=== PATIENT | female | born 1960 | race Caucasian/White ===

== ENCOUNTER 2019-12-27 12:12 | Emergency (ER) | payer BC, OTHER ==
--- NOTE | 2019-12-27 13:50 | ER Document Report ---
ED Medical Screen (RME) - General Chief Complaint: Near Syncope Stated Complaint: POSSIBLE SYNCOPE/NAUSEA Time Seen by Provider: 12/27/19 13:44 Mode of Arrival: Wheelchair Information source: Patient Notes: 59-year-old female presented to ED for dizziness nausea and vomiting when she woke up this morning around 8:30 AM. She states she felt like she was going to pass out but she did not. She states she she got back into bed and stayed there until her daughter came home. States when daughter came home she called 911 and brought her to the emergency room. States EMS gave her some nausea medicine. She states she is no longer nauseated but she is still dizzy. She states she has never felt like this before. I have greeted and performed a rapid initial assessment of this patient. A comprehensive ED assessment and evaluation of the patient, analysis of test results and completion of medical decision making process will be conducted by an additional ED providers. TRAVEL OUTSIDE OF THE [place] IN LAST 30 DAYS: No - Related Data Allergies/Adverse Reactions: No Known Allergies Allergy (Verified 03/10/16 14:35) Past Medical History - Past Medical History Cardiac Medical History: Reports: Hx Hypertension Past Surgical History: Reports: Hx Tubal Ligation - Immunizations Hx Diphtheria, Pertussis, Tetanus Vaccination: Yes Physical Exam - Vital signs Vitals: Temp Pulse Resp BP Pulse Ox 97.4 F 58 L 16 153/79 H 97 12/27/19 12:44 12/27/19 12:44 12/27/19 12:44 12/27/19 12:44 12/27/19 12:44 Course - Vital Signs Vital signs: Temp Pulse Resp BP Pulse Ox 97.4 F 58 L 16 153/79 H 97 12/27/19 12:44 12/27/19 12:44 12/27/19 12:44 12/27/19 12:44 12/27/19 12:44
[2019-12-27 14:59] LABS: ABSOLUTE LYMPHOCYTES (AUTO) 2.1 10^3/uL (0.5-4.7); ABSOLUTE MONOCYTES (AUTO) 0.2 10^3/uL (0.1-1.4); ABSOLUTE NEUT (AUTO) 1.5 10^3/uL (1.7-8.2); BASOPHILS % (AUTO) 1.3 % (0-2); EOSINOPHILS % (AUTO) 0.7 % (0-6); HEMATOCRIT 42.9 % (36.0-47.0); HEMOGLOBIN 14.5 g/dL (12.0-15.5); LYMPHOCYTES % (AUTO) 54.9 % (13-45); MEAN CORPUSCULAR HEMOGLOBIN 31.3 pg (27.0-33.4); MEAN CORPUSCULAR HGB CONC 33.7 g/dL (32.0-36.0); MEAN CORPUSCULAR VOLUME 93 fl (80-97); MONOCYTES % (AUTO) 4.2 % (3-13); PLATELET COUNT 232 10^3/uL (150-450); RED BLOOD COUNT 4.62 10^6/uL (3.72-5.28); RED CELL DISTRIBUTION WIDTH 13.5 % (11.5-14.0); SEGMENTED NEUTROPHILS % (AUTO) 38.9 % (42-78); TOTAL CELLS COUNTED % (AUTO) 100 %; WHITE BLOOD COUNT 3.8 10^3/uL (4.0-10.5)
[2019-12-27 15:01] LABS: APPEARANCE,URINE CLEAR; BILIRUBIN,URINE NEGATIVE (NEGATIVE); COLOR,URINE YELLOW; GLUCOSE, URINE NEGATIVE (NEGATIVE); KETONES,URINE NEGATIVE (NEGATIVE); PROTEIN,URINE NEGATIVE (NEGATIVE); URINE SPECIFIC GRAVITY 1.009; UROBILINOGEN,URINE NEGATIVE mg/dL (<2.0)
[2019-12-27 15:13] LABS: ALBUMIN 4.2 g/dL (3.5-5.0); ALKALINE PHOSPHATASE 79 U/L (38-126); ANION GAP 9 (5-19); ASPARTATE AMINO TRANSFERASE 24 U/L (14-36); BILIRUBIN,DIRECT 0.2 mg/dL (0.0-0.4); BILIRUBIN,TOTAL 0.5 mg/dL (0.2-1.3); BLOOD UREA NITROGEN 9 mg/dL (7-20); CALCIUM 10.9 mg/dL (8.4-10.2); CARBON DIOXIDE 25 mmol/L (22-30); CHLORIDE 108 mmol/L (98-107); GLUCOSE 97 mg/dL (75-110); POTASSIUM 4.9 mmol/L (3.6-5.0); TOTAL PROTEIN 7.9 g/dL (6.3-8.2)
--- NOTE | 2019-12-27 15:15 | RADIOLOGY REPORT (SQ) ---
EXAM DESCRIPTION: CHEST 2 VIEWS COMPLETED DATE/TIME: 12/27/2019 2:45 pm REASON FOR STUDY: Dizziness COMPARISON: 03/10/2016 EXAM PARAMETERS: NUMBER OF VIEWS: two views TECHNIQUE: Digital Frontal and Lateral radiographic views of the chest acquired. RADIATION DOSE: NA LIMITATIONS: none FINDINGS: LUNGS AND PLEURA: No opacities, masses or pneumothorax. No pleural effusion. MEDIASTINUM AND HILAR STRUCTURES: No masses or contour abnormalities. HEART AND VASCULAR STRUCTURES: Heart normal size. No evidence for failure. BONES: No acute findings. HARDWARE: None in the chest. OTHER: No other significant finding. IMPRESSION: NO ACUTE RADIOGRAPHIC FINDING IN THE CHEST. TECHNICAL DOCUMENTATION: JOB ID: [id number] [employer]- All Rights Reserved Reading location - IP/workstation name: [email or web address]
[2019-12-27] MEDS ORDERED: NORMAL SALINE 1000 ML 1,000 ML IV ONE (18:00)
[2019-12-27] MEDS ORDERED: DEXAMETHASONE SOD PHOS INJ 10 MG/1 ML VIAL IV ONE (18:01)
[2019-12-27] MEDS ORDERED: MECLIZINE HCL 25 MG TABLET PO ONE (18:01)
--- NOTE | 2019-12-27 18:02 | ER Document Report ---
ED Dizziness/Weakness - General Chief Complaint: Near Syncope Stated Complaint: POSSIBLE SYNCOPE/NAUSEA Time Seen by Provider: 12/27/19 13:44 Mode of Arrival: Wheelchair Notes: 59-year-old woman presents to the emergency department with a history of feeling off balance and dizzy which began when she awoke this morning. She denies lightheadedness or feeling faint. She describes it as feeling like she is on a ride and then developed nausea and a vomiting episode. She notes that she was off balance and the dizziness seems to be aggravated by positional change. She denies diabetes mellitus, hypertension or any new medications. TRAVEL OUTSIDE OF THE [place] IN LAST 30 DAYS: No - Related Data Allergies/Adverse Reactions: No Known Allergies Allergy (Verified 12/27/19 13:47) Home Medications: denies Past Medical History - General Information source: Patient - Social History Smoking Status: Current Every Day Smoker Frequency of alcohol use: None Drug Abuse: None Family History: None Patient has suicidal ideation: No Patient has homicidal ideation: No - Past Medical History Cardiac Medical History: Reports: Hx Hypertension Past Surgical History: Reports: Hx Tubal Ligation - Immunizations Hx Diphtheria, Pertussis, Tetanus Vaccination: Yes Review of Systems - Review of Systems Notes: Constitutional: Negative for fever. HENT: Negative for sore throat. Eyes: Negative for visual changes. Cardiovascular: Negative for chest pain. Respiratory: Negative for shortness of breath. Gastrointestinal: + Nausea, + vomiting x1 episode Genitourinary: Negative for dysuria. Musculoskeletal: Negative for back pain. Skin: Negative for rash. Neurological: Positional dizziness, 10 point ROS negative except as marked above and in HPI. Physical Exam - Vital signs Vitals: Temp Pulse Resp BP Pulse Ox 97.4 F 58 L 16 153/79 H 97 12/27/19 12:44 12/27/19 12:44 12/27/19 12:44 12/27/19 12:44 12/27/19 12:44 - Notes Notes: PHYSICAL EXAMINATION: Physical Exam: General: Well-nourished well-developed 59-year-old woman in no acute distress HEENT: NC/AT, pupils equal round and reactive to light, + nystagmus, MM moist,nares clear, ear exam: Bilateral dull TMs, no bulging, no redness, oropharynx clear Neck: supple, no adenopathy, no masses. Lungs: clear, no wheezing, no rales no rhonchi CVS: Regular rate and rhythm no murmur gallop or rub Abdomen: Soft active nontender, no masses, no hepatosplenomegaly Ext: No edema clubbing or cyanosis. Neuro: Alert and responsive, moving all 4 extremities on command, cranial nerves intact. Skin: Intact no open lesions, no rash PSYCH: Normal mood, normal affect. Course - Re-evaluation Re-evalutation: 12/27/19 19:53 I reviewed the lab data and of note that there are no significant abnormalities, I have discussed with the patient and her positional dizziness appears to be labyrinthitis. We will cover her with meclizine, prednisone, and follow-up with her primary physician. The patient acknowledges understanding and is in agreement with this plan - Vital Signs Vital signs: Temp Pulse Resp BP Pulse Ox 97.4 F 58 L 16 153/79 H 97 12/27/19 12:44 12/27/19 12:44 12/27/19 12:44 12/27/19 12:44 12/27/19 12:44 - Laboratory Result Diagrams: 12/27/19 14:05 12/27/19 14:05 Laboratory results interpreted by me: 12/27/19 12/27/19 12/27/19 14:05 14:05 14:25 WBC 3.8 L Lymph % (Auto) 54.9 H Absolute Neuts (auto) 1.5 L Seg Neutrophils % 38.9 L Chloride 108 H Calcium 10.9 H Urine Blood SMALL H Discharge - Discharge Clinical Impression: Labyrinthitis of both ears, Vertigo Condition: Good Disposition: HOME, SELF-CARE Instructions: Labyrinthitis ([facility]), Meclizine ([facility]), Vertigo ([facility]) Additional Instructions: You are diagnosed with labyrinthitis and vertigo today in the emergency department, prednisone and meclizine are prescribed to help control the symptoms. Push fluids and take the medication as prescribed if your symptoms ar e resolving please continue the medications as prescribed. If your symptoms are worsening or if you having other difficulties please follow-up with your primary care doctor or return to the emergency department for further evaluation. Prescriptions: Meclizine HCl [Antivert 25 mg Tablet] 25 mg PO TID PRN #21 tablet PRN Reason: Prednisone [Deltasone 20 mg Tablet] 1 tab PO BID 5 Days #10 tablet
--- NOTE | 2019-12-27 19:38 | EKG REPORT ---
SEVERITY:- OTHERWISE NORMAL ECG - SINUS RHYTHM BORDERLINE LEFT AXIS DEVIATION : Confirmed by: Yolis Santoro MD 27-Dec-2019 19:37:37
[2019-12-27 20:10] VITALS: BP 151/75
== END 2019-12-27 20:13 | disposition home or self-care (01) ==
LOC: ER 12:12
DX: H83.03 Labyrinthitis, bilateral (principal); R42 Dizziness and giddiness; H55.00 Unspecified nystagmus; R11.2 Nausea with vomiting, unspecified; F17.200 Nicotine dependence, unspecified, uncomplicated; I10 Essential (primary) hypertension
CPT/HCPCS: 93005; 99284; 96361; 96374; 36415; 83690; 85025; 80053; 81001; 84484; 71046; 93010; J7030; J1100